=== PATIENT | female | born 1990 | race Caucasian/White ===

== ENCOUNTER 2019-06-14 18:10 | Emergency (ER) | payer BC ==
[~2019-06-14] VITALS: Ht 170.2 cm; Wt 88.0 kg
[2019-06-14 18:45] VITALS: BP_SYST 124
[2019-06-14] MEDS ORDERED: PREDNISONE 20 MG TABLET PO ONE (21:30)
[2019-06-14 21:35] VITALS: BP_SYST 118
[2019-06-14] MEDS ORDERED: PREDNISONE 20 MG TABLET ONE (21:39)
== END 2019-06-14 21:35 | disposition home or self-care (01) ==
LOC: SED 18:10
DX: L50.9 Urticaria, unspecified (principal); Z88.2 Allergy status to sulfonamides
CPT/HCPCS: 99283; J7512